=== PATIENT | female | born 1960 | race Hispanic/Latino ===

== ENCOUNTER 2023-06-07 06:05 | Day surgery (SDC) | payer OTHER, SELFPAY ==
[2023-06-07 06:31] VITALS: BMI 30.3
[2023-06-07 06:32] VITALS: BP 146/68; BMI 30.3
[2023-06-07] MEDS: POLYTRIM OPHTHALMIC SOLUTION 1 DROP OPHTH (06:42)
[2023-06-07] MEDS: ALCAINE 0.5% EYE DROPS 1 DROP OPHTH (06:42)
[2023-06-07] MEDS: PRED FORTE 1% EYE DROPS 1 DROP OPHTH (06:42)
[2023-06-07] MEDS: MYDRIACYL 1 DROP OPHTH (06:43)
[2023-06-07] MEDS: NEO-SYNEPHRINE 2.5% OPH SOL. 1 DROP OPHTH (06:43)
[2023-06-07] MEDS: ACUVAIL 1 DROPS OPHTH (06:44)
[2023-06-07] MEDS: CYCLOGYL 1% EYE DROPS 1 DROP OPHTH (06:44)
[2023-06-07] MEDS: NORMOSOL-R 1000 IV (06:45)
[2023-06-07] MEDS: AKTEN OPHTHALMIC GEL 1 ML OPHTH (06:45)
[2023-06-07 06:46] LABS: Glucose - Point of Care 96 mg/dl (70-99)
[2023-06-07 08:00] VITALS: BP 148/65
[2023-06-07 08:15] VITALS: BP 140/67
== END 2023-06-07 08:30 | disposition home or self-care (01) ==
LOC: SDS 06:05
PROVIDERS: ATTENDING PHYSICIAN Ophthalmology
DX: H25.12 Age-related nuclear cataract, left eye (principal)
CPT/HCPCS: 66984; 82962; V2632

== ENCOUNTER 2024-01-23 22:08 | Emergency (ER) | payer OTHER, SELFPAY ==
[2024-01-23 22:10] VITALS: BP 186/97
[2024-01-23 22:36] VITALS: BMI 26.2
--- NOTE | 2024-01-23 22:52 | ED.GENMED ---
History of Present Illness
<SATHYA Parsons - Last Filed: 01/24/24 04:13>
General
Chief Complaint: Fever
Time Seen by Provider: 01/23/24 22:40
History of Present Illness
History of Present Illness:
Pt is a 64 y/o F with phmx of HTN, cardiomyopathy, and cardiac cath ablation in 2022 presents with complaints of cough and fever x1 week. The cough is productive with white sputum and is worsened with exertion. There is associated chest pain, back
pain, SOB, and vomiting. She is unsure of how many episodes of vomit she has had but it is brought on by her cough. has tried Tylenol at 3pm today without relief. The fever is associated with chills and headache. The pt denies sick contacts. Denies
hemoptysis, nausea, food in vomit, abdominal pain, swelling, or extremity pain.
Past History
<SATHYA Parsons - Last Filed: 01/24/24 04:13>
Past History
ED Past Medical History: HTN, Other (Cardiomyopathy) and Other (Cataracts)
ED Past Surgical History: Cardiac (PVC ablation)
Social History
Tobacco: Non-smoker
Alcohol: None
Living: with family
Family History
Family History: Negative Diabetes, Hypertension, Early CAD, Asthma or Cancer
Review of Systems
<SATHYA Parsons - Last Filed: 01/24/24 04:13>
Review of Systems
Allergies reviewed?: Yes
Constitutional: Reports fever and chills
EENT: Reports no symptoms
Respiratory: Reports cough and trouble breathing
Cardiac: Reports chest pain
ABD/GI: Reports vomiting
: Reports no symptoms
Musculoskeletal: Reports back pain
Skin: Reports no symptoms
Neurological: Reports headache
Endocrine: Reports no symptoms
Hematologic/Lymphatic: Reports no symptoms
Psychiatric: Reports no symptoms
Phy Exam
<SATHYA Parsons - Last Filed: 01/24/24 04:13>
General Physical Exam
General Presentation: mild distress
General age: appears stated age
General Skin: warm and dry
General Habitus: normal
General Mental: alert
General Hydration: appears well hydrated
ENT Exam
ENT Exam: EOMI and neck supple
Eye Exam
Eye Exam: PERRL, EOMI, cornea clear and conjunctiva normal
Cardiovascular Exam
Cardiovascular Exam: regular rate/rhythm and normal peripheral pulses
Pulmonary Exam
Pulmonary Exam: chest non tender and decreased breath sounds
Cough: hacking cough and productive cough
Respirations: shallow
Breath Sounds: Crackles: left upper and left lower and Rhonchi: generalized
Gastrointestinal Exam
Gastrointestinal Exam: normal bowel sounds, non tender, soft and non distended
Neurological Exam
Neurological Exam: alert, oriented x3, CN II-XII intact, no motor deficits, normal reflexs, no sensory deficits and speech normal
Musculoskeletal Exam
Musculoskeletal Exam: full ROM, no edema and neuro vasc intact
Skin Exam
Skin Exam: normal color, warm/dry, no rash and no petechia
Psychiatric Exam
Psychiatric Exam: normal mood/affect
Sepsis
<SATHYA Parsons - Last Filed: 01/24/24 04:13>
Sepsis Screening
Sepsis Assessment: Sepsis Ruled Out
Sepsis Screen
Sepsis Screen: Sepsis Ruled Out
Date: 01/24/24
Time: 04:13
Course
<SATHYA Parsons - Last Filed: 01/24/24 04:13>
Orders/Labs/Results
Orders:
Orders
01/23/24 22:15
CR Chest - 2 Views Urgent
Comment:
Reason For Exam: cough, fever, tachypnea
01/23/24 22:55
COVID-19 Antigen Urgent
Source: Nasal Swab
Complete Blood Count/With Diff Urgent
Comprehensive Metabolic Panel Urgent
Influenza A+B Rapid Molecular Urgent
THOMAS Source: Nasal Swab
Specimen Description:
01/23/24 23:15
Ipratropium/Albuterol Sulfate [Duoneb] 3 ml INH R NOW STA
01/23/24 23:17
Acetaminophen [Tylenol] 1,000 mg PO NOW STA
01/23/24 23:25
Electrocardiogram (*1) Urgent
Reason for Study: Chest Pain
EKG- Treatment ONCE
01/23/24 23:29
Lactic Acid Urgent
NT-proBNP Urgent
01/23/24 23:35
Sputum Culture [Respiratory Culture/Gram Stain] Urgent
THOMAS Source: Sputum
Specimen Description:
Date Specimen was Collected: 01/24/24
Time Specimen was Collected: 00:03
01/24/24 00:19
Azithromycin [Zithromax] 500 mg PO NOW STA
CefTRIAXone [Rocephin] 1,000 mg IV NOW STA
01/24/24 00:44
Sterile Water [Sterile Water For Injection] 20 ml .ROUTE .STK-MED
Abnormal Lab Results
01/23/24
22:55
MCV 80.5 L fL
(81.0-99.0)
Absolute Neuts (auto) 7.6 H 10^3/uL
(1.4-6.5)
Absolute Monos (auto) 0.8 H 10^3/uL
(0.1-0.6)
Lymphocytes % 17.4 L %
(20.5-51.1)
BUN 18 H mg/dl
(7-17)
Glucose 109 H mg/dl
(70-99)
AST 38 H U/L
(14-36)
01/23/24 22:55
01/23/24 22:55
Vital Signs
Initial and Last Documented VS:
Initial Vital Signs
Temp Pulse Resp BP Pulse Ox
99.7 F 61 30 186/97 93
01/23/24 22:10 01/23/24 22:10 01/23/24 22:10 01/23/24 22:10 01/23/24 22:10
Last Documented Vital Signs
Temp Pulse Resp BP Pulse Ox
99.2 F 61 28 127/52 92
01/24/24 00:18 01/24/24 01:45 01/24/24 01:45 01/24/24 01:43 01/24/24 01:43
<Carrie Viramontes, DO - Last Filed: 01/24/24 01:13>
Orders/Labs/Results
Orders:
Orders
01/23/24 22:15
CR Chest - 2 Views Urgent
Comment:
Reason For Exam: cough, fever, tachypnea
01/23/24 22:55
COVID-19 Antigen Urgent
Source: Nasal Swab
Complete Blood Count/With Diff Urgent
Comprehensive Metabolic Panel Urgent
Influenza A+B Rapid Molecular Urgent
THOMAS Source: Nasal Swab
Specimen Description:
01/23/24 23:15
Ipratropium/Albuterol Sulfate [Duoneb] 3 ml INH R NOW STA
01/23/24 23:17
Acetaminophen [Tylenol] 1,000 mg PO NOW STA
01/23/24 23:25
Electrocardiogram (*1) Urgent
Reason for Study: Chest Pain
EKG- Treatment ONCE
01/23/24 23:29
Lactic Acid Urgent
NT-proBNP Urgent
01/23/24 23:35
Sputum Culture [Respiratory Culture/Gram Stain] Urgent
THOMAS Source: Sputum
Specimen Description:
Date Specimen was Collected: 01/24/24
Time Specimen was Collected: 00:03
01/24/24 00:19
Azithromycin [Zithromax] 500 mg PO NOW STA
CefTRIAXone [Rocephin] 1,000 mg IV NOW STA
01/24/24 00:44
Sterile Water [Sterile Water For Injection] 20 ml .ROUTE .K-MED
Abnormal Lab Results
01/23/24
22:55
MCV 80.5 L fL
(81.0-99.0)
Absolute Neuts (auto) 7.6 H 10^3/uL
(1.4-6.5)
Absolute Monos (auto) 0.8 H 10^3/uL
(0.1-0.6)
Lymphocytes % 17.4 L %
(20.5-51.1)
BUN 18 H mg/dl
(7-17)
Glucose 109 H mg/dl
(70-99)
AST 38 H U/L
(14-36)
01/23/24 22:55
01/23/24 22:55
Vital Signs
Temp: 101.3 F
Initial and Last Documented VS:
Initial Vital Signs
Temp Pulse Resp BP Pulse Ox
99.7 F 61 30 186/97 93
01/23/24 22:10 01/23/24 22:10 01/23/24 22:10 01/23/24 22:10 01/23/24 22:10
Last Documented Vital Signs
Temp Pulse Resp BP Pulse Ox
99.2 F 61 28 127/52 92
01/24/24 00:18 01/24/24 01:45 01/24/24 01:45 01/24/24 01:43 01/24/24 01:43
<SATHYA Parsons - Last Filed: 01/24/24 04:13>
MDM/Problems Addressed
Differential Diagnosis Includes:
PNA
CHF
<SATHYA Parsons - Last Filed: 01/24/24 04:13>
*Critical Care Note
Total Time (30-74mins, 75-104mins- exclusive of procedures): Not Applicable
<Carrie Viramontes DO - Last Filed: 01/24/24 01:13>
*Radiology
Radiology exam reviewed: preliminary read by ED provider (Chest x-ray shows focal infiltrate posteriorly noted on lateral film which is new compared to previous films. Mild cardiomegaly is stable.)
*Pulse Oximetry
Patient hypoxic: no
*EKG
Interpreted by ED Provider?: Yes
Comparison EKG: changes noted (Heart rate has increased from 33 noted on EKG May 2022 to now 70. Mild T wave inversion lead III and aVF are new compared to previous 2022.)
Rate: normal
Rhythm: sinus
Royal: normal axis
Interval: normal interval
QRS Pattern: normal QRS
Ischemia: non-specific ST changes
*G[employer]uler Interpretation
Rate: normal
Interpretation: normal
Rhythm: sinus
<SATHYA Parsons - Last Filed: 01/24/24 04:13>
Update Note
Update Note:
01/24/24, 0030: Pt reports overall improved symptoms after administration of Acetaminophen and DuoNeb. On exam, there is rales and rhonchi in left greater than right lung tenorio.
ED Attending Note
<SATHYA Parsons - Last Filed: 01/24/24 04:13>
-
Portions of this chart may have been created with voice recognition software.� Occasional wrong word or��sound alike� substitutions may have occurred due to the inherent limitations of voice recognition software.
<Carrie Viramontes DO - Last Filed: 01/24/24 01:13>
ED Attending Note
Patient seen and examined by attending physician: Yes
I performed the substantive portion of visit, reviewed & personally made and approve the management plan that is documented in note by myself or BERT.: Yes
ED Attending Note:
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 She also has history of pneumonia approximately 1 year ago who presents with over 1 week history of URI symptoms with
cough productive of whitish phlegm, generalized aches and chills, subjective fever. Symptoms have worsened throughout the week and she was unable to go to work the past 3 days due to URI symptoms. No known close contacts with similar symptoms. No
recent travel. She does admit to mild dyspnea on exertion, generalized fatigue and marked difficulty sleeping due to cough. She denies sore throat nor nasal congestion, no palpitations, no nausea no vomiting, no diarrhea or constipation. Appetite
has been fair.
Lifelong non-smoker. No history of chronic lung disease.
She has been taking Tylenol as well as ibuprofen for aches with temporary improvement.
Prior records reviewed. PVC ablation May 2022.
Follow-up echocardiogram April 2023 shows normal biventricular size and normal systolic function with EF of 60%, improved from 45% noted on echo October 2021.
GENERAL: 64-year-old woman appears her stated age, awake and alert, mildly ill in appearance with mild resting tachypnea. Able to speak in full sentences. Intermittent brief cough is noted during exam. Oral temperature 101.3 �F.
EYE: anicteric
NECK: Supple, nontender, no meningismus, no significant adenopathy. No JVD.
ENT: posterior pharynx is clear, oral mucosa is moist. TM clear b/l, nares patent.
CARDIAC: Regular rate and rhythm. no murmur.
LUNGS: Mild resting tachypnea with fine rhonchi bilateral bases as well as right anterior chest wall.
ABDOMEN: Soft, nondistended, without focal tenderness. normoactive BS.
NEUROLOGICAL: Alert and oriented x3, no focal neuro deficits.
SKIN: Mildly hot to touch and dry, normal color, skin intact. No rash.
MUSCULOSKELETAL: No C/C/E. peripheral pulses are full and equal b/l. No palpable tenderness.
PSYCH: Normal and appropriate interaction.
Patient presents with 1 week history of URI symptoms, febrile, mildly tachypneic. Concern for pneumonia, pneumonitis, acute influenza, acute COVID URI. Accompanying acute CHF is less likely.
Labs are pending including COVID and influenza testing. Will check lactic acid. Sputum culture. Consider adding BNP.
Chest x-ray concerning for infiltrate noted posteriorly, less likely an element of CHF.
Will give Tylenol for fever.
Will give DuoNeb nebulizer.
Will check EKG.
01/24/2024 0100 AM
Patient resting comfortably, respirations are easy and nonlabored. Tolerating oral fluids.
Fevers dissipating.
Labs are unremarkable with normal white blood cell count, unremarkable chemistries. Normal BNP. COVID and influenza testing are negative.
After nebulizer treatment, cough has markedly diminished and lungs have continued rales left base but otherwise clear to auscultation.
Chest x-ray findings and auscultation consistent with left lower lobe pneumonia.
Will give an IV dose of Rocephin and initiate a course of Zithromax for community-acquired pneumonia.
Overall appears comfortable, pulse ox 94 to 95% on room air.
Will discharge to home with prescription for Zithromax for community-acquired pneumonia. Will add albuterol inhaler for as needed cough.
Recommend she remain home from work until fever free for 24 hours.
Discussed importance of staying well-hydrated on a daily basis and continue to rest.
Prompt follow-up with PCP for recheck.
Return precautions discussed.
Discharge Plan
Departure
Patient Disposition: Home (Routine Discharge)
Date of Disposition: 01/24/24
Time of Disposition: 01:08
Patient with high blood pressure during this ER visit?: No
Condition: Good
Discharge Problem:
Community acquired pneumonia
Instructions: Community-acquired pneumonia in adults, Fever, Adult (DC)
Prescriptions:
New
azithromycin [Zithromax TRI-MARCO A] 500 mg tablet
500 mg PO DAILY 3 Days Qty: 3 0RF
albuterol sulfate 90 mcg/actuation aerosol powdr breath activated
2 inh inhalation Q6H PRN (Reason: shortness of breath or coughing) Qty: 1 0RF
No Action
furosemide 40 mg Tablet
40 mg PO DAILY
potassium chloride 20 mEq Tablet Extended Release
20 meq PO DAILY
dapagliflozin propanediol [Farxiga] 10 mg Tablet
10 mg PO QPM
aspirin 81 mg Capsule
81 mg PO QPM
lisinopril 20 mg Tablet
20 mg PO QPM
Referrals:
Noemi Delgado MD [Family Provider] - Call in 1-3 days for appt
Interventions
Interventions:
*Risk Screen - Suicide Last Done: 01/23/24 22:10
*General Assessment Last Done: 01/23/24 22:10
*Neglect/Abuse Screening Last Done: 01/23/24 22:10
ED- Fall Risk Assessment Last Done: 01/23/24 22:45
*ED COVID-19 Vaccine History Last Done: 01/23/24 22:36
*Nursing Disposition Last Done: 01/24/24 02:30
ED- Neurological Assessment Last Done: 01/23/24 22:45
ED-Skin Assessment Last Done: 01/23/24 22:45
Discharge Date and Time
Discharge Date/Time: 01/24/24 02:30
Print Language: FRENCH
[2024-01-23 22:57] VITALS: BP 155/80
[2024-01-23 23:01] VITALS: BP 161/91
[2024-01-23 23:03] LABS: % Basophils 0.6 % (0-2); % Eosinophils 1.4 % (0-6); % Immature Granulocytes 0.4 % (0-0.5); % Lymphocytes 17.4 % (20.5-51.1); % Monocytes 7.2 % (1.7-9.3); Absolute Basophils 0.1 10^3/uL (0-0.2); Absolute Eosinophils 0.1 10^3/uL (0-0.7); Absolute Lymphocytes 1.8 10^3/uL (1.2-3.4); Absolute Monocytes 0.8 10^3/uL (0.1-0.6); Absolute Neutrophils 7.6 10^3/uL (1.4-6.5); Hematocrit 40.5 % (37.0-47.0); Hemoglobin 13.7 g/dL (12.0-16.0); Mean Corp Hgb Conc. 33.8 g/dL (33.0-37.0); Mean Corpuscular Hgb 27.2 pg (27.0-31.0); Mean Corpuscular Volume 80.5 fL (81.0-99.0); Mean Platelet Volume 9.8 fL (7.4-10.4); Nucleated Red Blood Cells % 0 %; Platelet Count 337 10^3/uL (130-400); Red Blood Cell Count 5.03 10^6/uL (4.20-5.40); Red Cell Dist. Width 13.2 % (11.5-14.5); White Blood Cell Count 10.4 10^3/uL (4.8-10.8)
[2024-01-23 23:21] LABS: COVID-19 Antigen Negative (Negative)
[2024-01-23] MEDS: DUONEB 3 ML INH (23:23)
[2024-01-23] MEDS: TYLENOL 1000 MG PO (23:23)
[2024-01-23 23:30] LABS: ALT (SGPT) 25 U/L (0-35); AST (SGOT) 38 U/L (14-36); Albumin 4.4 g/dl (3.5-5.0); Alkaline Phosphatase 111 U/L (38-126); Blood Urea Nitrogen 18 mg/dl (7-17); Calcium 9.3 mg/dl (8.4-10.2); Carbon Dioxide 27 mmol/L (22-30); Chloride 99 mmol/L (98-107); Estimated Creatinine Clearance 62 ml/min; Glucose 109 mg/dl (70-99); Potassium 4.5 mmol/L (3.5-5.1); Sodium 139 mmol/L (135-145); Total Bilirubin 0.6 mg/dl (0.2-1.3); Total Protein 7.4 g/dl (6.3-8.2); eGFR > 60.00
[2024-01-23 23:49] LABS: Lactic Acid 0.9 mmol/L (0.7-2.0)
[2024-01-23 23:58] LABS: NT-proBNP 219 pg/ml
[2024-01-24] VITALS: BP 152/71
[2024-01-24] MEDS: ZITHROMAX 500 MG PO (00:47)
[2024-01-24] MEDS: ROCEPHIN 1000 MG IV (00:47)
[2024-01-24 01:00] VITALS: BP 132/70
[2024-01-24 01:43] VITALS: BP 127/52
== END 2024-01-24 02:30 | disposition home or self-care (01) ==
LOC: EMR 22:08
PROVIDERS: Emergency Medicine; EMERGENCY PHYSICIAN Emergency Medicine; FAMILY PHYSICIAN Emergency Medicine
DX: J18.9 Pneumonia, unspecified organism (principal); R11.10 Vomiting, unspecified; R51.9 Headache, unspecified; Z11.52 Encounter for screening for COVID-19; I10 Essential (primary) hypertension; I42.9 Cardiomyopathy, unspecified; Z79.82 Long term (current) use of aspirin
CPT/HCPCS: 99284; 96374; 94640; 71046; 80053; 83605; 83880; 85025; 87205; 87502; 87811; 93005

== ENCOUNTER 2024-01-30 13:18 | Emergency (ER) | payer OTHER, SELFPAY ==
[2024-01-30 13:21] VITALS: BP 168/102
[2024-01-30 13:42] VITALS: BMI 27.9
[2024-01-30 13:48] VITALS: BP 144/70
[2024-01-30 14:00] VITALS: BP 142/77
[2024-01-30] MEDS: DECADRON 10 MG IV (14:44)
[2024-01-30] MEDS: DUONEB 3 ML INH (14:44)
[2024-01-30 14:59] LABS: % Basophils 0.9 % (0-2); % Immature Granulocytes 0.9 % (0-0.5); % Lymphocytes 39.5 % (20.5-51.1); % Monocytes 9.1 % (1.7-9.3); % Neutrophils 43.6 % (42.2-75.2); Absolute Basophils 0.1 10^3/uL (0-0.2); Absolute Eosinophils 0.5 10^3/uL (0-0.7); Absolute Immature Granulocytes 0.1 10^3/uL (0-0.05); Absolute Lymphocytes 3.1 10^3/uL (1.2-3.4); Absolute Monocytes 0.7 10^3/uL (0.1-0.6); Absolute Neutrophils 3.4 10^3/uL (1.4-6.5); Hematocrit 41.3 % (37.0-47.0); Hemoglobin 13.9 g/dL (12.0-16.0); Mean Corp Hgb Conc. 33.7 g/dL (33.0-37.0); Mean Corpuscular Hgb 27.3 pg (27.0-31.0); Mean Platelet Volume 9.3 fL (7.4-10.4); Nucleated Red Blood Cells % 0 %; Platelet Count 454 10^3/uL (130-400); Red Cell Dist. Width 13.2 % (11.5-14.5); White Blood Cell Count 7.8 10^3/uL (4.8-10.8)
[2024-01-30 15:00] VITALS: BP 150/79
[2024-01-30 15:07] LABS: ALT (SGPT) 35 U/L (0-35); AST (SGOT) 48 U/L (14-36); Albumin 4.2 g/dl (3.5-5.0); Alkaline Phosphatase 129 U/L (38-126); Blood Urea Nitrogen 25 mg/dl (7-17); Calcium 9.2 mg/dl (8.4-10.2); Carbon Dioxide 26 mmol/L (22-30); Chloride 103 mmol/L (98-107); Estimated Creatinine Clearance 54 ml/min; Glucose 100 mg/dl (70-99); Potassium 4.6 mmol/L (3.5-5.1); Sodium 140 mmol/L (135-145); Total Bilirubin 0.3 mg/dl (0.2-1.3); Total Protein 7.4 g/dl (6.3-8.2); eGFR > 60.00
[2024-01-30 15:08] LABS: Lactic Acid 0.8 mmol/L (0.7-2.0)
[2024-01-30 15:16] LABS: NT-proBNP 81.6 pg/ml
--- NOTE | 2024-01-30 15:57 | ED.GENMED ---
History of Present Illness
General
Chief Complaint: Cold/Flu/URI Symptoms
Source: patient
Exam Limitations: none
Time Seen by Provider: 01/30/24 13:41
Nursing documentation reviewed up to this point in time: agreed with
History of Present Illness
History of Present Illness:
64-year-old female with past medical history of hypertension heart disease, pneumonia. She is presenting with concerns of ongoing cough over the past week after being diagnosed with a community-acquired pneumonia. At that point she had noticed
cough. She was found to have a pneumonia to the left lower lobe and was started on ceftriaxone and Zithromax. She claims that she is taking this as prescribed as an outpatient. Otherwise she was also written for an inhaler as she apparently was
having some wheezing at the time as well. On arrival here patient is noticed ongoing cough denies any specific fevers chest pain nausea vomiting. On arrival blood pressure elevated otherwise vital signs are normal. Heart rate in the 50s.
Past History
Past History
ED Past Medical History: HTN, Other (Cardiomyopathy) and Other (Cataracts)
ED Past Surgical History: Cardiac (PVC ablation)
Social History
Tobacco: Non-smoker
Alcohol: None
Living: with family
Family History
Family History: Negative Diabetes, Hypertension, Early CAD, Asthma or Cancer
Review of Systems
Review of Systems
Allergies reviewed?: Yes
All Other Systems: ROS reviewed and negative except as documented in HPI and ROS
Phy Exam
Physical Exam
Physical Exam:
GENERAL: Alert , in no apparent distress
EYE: pupils equal and reactive
NECK: Supple, no significant adenopathy.
ENT: o/p clr, mmm.
CARDIAC: Regular rate and rhythm .
LUNGS: Diffuse expiratory wheezing. Otherwise good air movement
ABDOMEN: Soft, without focal tenderness, no r/g, no cvat
NEUROLOGICAL: Alert and oriented, no focal neuro deficits
SKIN: Warm and dry, skin intact.
MUSCULOSKELETAL: No edema, well perfused.
PSYCH: Normal and appropriate interaction.
Course
Orders/Labs/Results
Orders:
Orders
01/30/24 14:08
Dexamethasone Sod Phosphate [Decadron] 10 mg IV NOW STA
Ipratropium/Albuterol Sulfate [Duoneb] 3 ml INH R NOW STA
01/30/24 14:09
CR Chest - 2 Views Urgent
Comment:
Reason For Exam: sob cough recent pna
01/30/24 14:21
Complete Blood Count/With Diff Urgent
Comprehensive Metabolic Panel Urgent
Lactic Acid Q4H
Comment: CANCEL 2nd LACTIC ACID IF 1st LACTIC ACID IS LESS THAN 2
NT-proBNP Urgent
01/30/24 16:55
Amoxicillin 875 mg/Clav 125 mg [Augmentin 875 mg/125 mg] 1 tablet PO NOW STA
Abnormal Lab Results
01/30/24
14:21
Plt Count 454 H D 10^3/uL
(130-400)
Abs Immat Gran (auto) 0.1 H 10^3/uL
(0-0.05)
Absolute Monos (auto) 0.7 H 10^3/uL
(0.1-0.6)
Immature Gran % 0.9 H %
(0-0.5)
BUN 25 H mg/dl
(7-17)
Glucose 100 H mg/dl
(70-99)
AST 48 H U/L
(14-36)
Alkaline Phosphatase 129 H U/L
(38-126)
01/30/24 14:21
01/30/24 14:21
Vital Signs
Initial and Last Documented VS:
Initial Vital Signs
Temp Pulse Resp BP Pulse Ox
98.4 F 55 16 168/102 97
01/30/24 13:21 01/30/24 13:21 01/30/24 13:21 01/30/24 13:21 01/30/24 13:21
Last Documented Vital Signs
Temp Pulse Resp BP Pulse Ox
98.4 F 49 15 134/116 95
01/30/24 13:21 01/30/24 14:15 01/30/24 14:15 01/30/24 16:00 01/30/24 16:15
MDM/Problems Addressed
MDM/Problems Addressed:
64-year-old female presenting to the emergency department today with concerns of ongoing cough. She was diagnosed with pneumonia 1 week ago and has taken Zithromax. On arrival here patient was afebrile in no distress but did have expiratory
wheezing diffusely.. She was previously treated with azithromycin was given 1 dose of ceftriaxone. X-ray was repeated here that showed improving pneumonia. Vital signs remained normal throughout ER stay diastolic was elevated at 1 point but
repeated blood pressure was in normal range. Heart rate in the 50s to 60s throughout ER stay normal pulse ox able to ambulate without obvious distress. Wheezing significantly improved after nebulizer treatment and steroid. No significant white
count does not appear to have worsening pneumonia and does not appear to require IV antibiotics and admission at this point. Patient was written for Augmentin considering there is some degree of ongoing consolidation on the chest x-ray and was
previously treated with azithromycin only. Otherwise stable for outpatient management return precautions given.
*Critical Care Note
Total Time (30-74mins, 75-104mins- exclusive of procedures): Not Applicable
ED Attending Note
-
Portions of this chart may have been created with voice recognition software.� Occasional wrong word or��sound alike� substitutions may have occurred due to the inherent limitations of voice recognition software.
Discharge Plan
Departure
Patient Disposition: Home (Routine Discharge)
Date of Disposition: 01/30/24
Time of Disposition: 16:56
Patient with high blood pressure during this ER visit?: No
Condition: Good
Covid-19: Not Applicable
Discharge Problem:
Diffuse wheezing
Instructions: Asthma, Adult ED
Prescriptions:
New
prednisone 20 mg tablet
40 mg PO DAILY 3 Days Qty: 6 0RF
albuterol sulfate 90 mcg/actuation aerosol powdr breath activated
1 inh inhalation Q6H PRN (Reason: shortness of breath or wheezing) Qty: 1 0RF
amoxicillin-pot clavulanate 875-125 mg tablet
1 tab PO BID 7 Days Qty: 14 0RF
No Action
furosemide 40 mg Tablet
40 mg PO DAILY
potassium chloride 20 mEq Tablet Extended Release
20 meq PO DAILY
dapagliflozin propanediol [Farxiga] 10 mg Tablet
10 mg PO QPM
aspirin 81 mg Capsule
81 mg PO QPM
lisinopril 20 mg Tablet
20 mg PO QPM
azithromycin [Zithromax TRI-MARCO A] 500 mg tablet
500 mg PO DAILY 3 Days Qty: 3 0RF
albuterol sulfate 90 mcg/actuation aerosol powdr breath activated
2 inh inhalation Q6H PRN (Reason: shortness of breath or coughing) Qty: 1 0RF
Referrals:
Case Hester DO [Family Provider] -
Activity Restrictions/Additional Instructions:
You came to the emergency department today with concerns of ongoing symptoms after recently being diagnosed with pneumonia. Here your x-ray showed but appear to be improving pneumonia. You did have lung sounds that were consistent with wheezing
and inflammatory reaction. Please take the steroid over the next few days as well as Augmentin to ensure there is no ongoing pneumonia. Return to the emergency department medially for any worsening, new or concerning symptoms. Otherwise please
follow-up closely with your primary care doctor in the next few days for reassessment.
Interventions
Interventions:
*Risk Screen - Suicide Last Done: 01/30/24 13:42
*General Assessment Last Done: 01/30/24 13:42
*Neglect/Abuse Screening Last Done: 01/30/24 13:42
ED- Fall Risk Assessment Last Done: 01/30/24 13:42
*ED COVID-19 Vaccine History Last Done: 01/30/24 13:42
ED- Pulmonary Assessment Last Done: 01/30/24 13:42
Discharge Date and Time
Print Language: CUBAN
[2024-01-30 16:00] VITALS: BP 134/116
[2024-01-30 17:00] VITALS: BP 151/55
[2024-01-30] MEDS: AUGMENTIN 875 MG/125 MG 1 TABLET PO (17:08)
== END 2024-01-30 17:30 | disposition home or self-care (01) ==
LOC: EMR 13:18
PROVIDERS: Physician Assistant; EMERGENCY PHYSICIAN Student in an Organized Health Care Education/Training Program; FAMILY PHYSICIAN Family Medicine
DX: R06.2 Wheezing (principal); R05.9 Cough, unspecified; I11.9 Hypertensive heart disease without heart failure
CPT/HCPCS: 99283; 94640; 96374; 71046; 80053; 83605; 83880; 85025

== ENCOUNTER → 2024-08-11 13:22 | Outpatient (REF) | payer OTHER, SELFPAY ==
[2024-08-11 14:49] LABS: % Basophils 0.7 % (0-2); % Eosinophils 5.1 % (0-6); % Immature Granulocytes 0.5 % (0-0.5); % Lymphocytes 26.2 % (20.5-51.1); % Monocytes 6.1 % (1.7-9.3); % Neutrophils 61.4 % (42.2-75.2); Absolute Basophils 0.1 10^3/uL (0-0.2); Absolute Eosinophils 0.4 10^3/uL (0-0.7); Absolute Lymphocytes 2.2 10^3/uL (1.2-3.4); Absolute Monocytes 0.5 10^3/uL (0.1-0.6); Absolute Neutrophils 5.1 10^3/uL (1.4-6.5); Hemoglobin 14.9 g/dL (12.0-16.0); Mean Corp Hgb Conc. 32.4 g/dL (33.0-37.0); Mean Corpuscular Hgb 27.9 pg (27.0-31.0); Mean Corpuscular Volume 86.1 fL (81.0-99.0); Mean Platelet Volume 10.3 fL (7.4-10.4); Nucleated Red Blood Cells % 0 %; Platelet Count 387 10^3/uL (130-400); Red Blood Cell Count 5.34 10^6/uL (4.20-5.40); Red Cell Dist. Width 13.5 % (11.5-14.5); White Blood Cell Count 8.4 10^3/uL (4.8-10.8)
[2024-08-11 14:55] LABS: Urine Albumin 2+ (Neg - Trace); Urine Bilirubin 1+ (Negative); Urine Character Clear (Clear); Urine Color Yellow; Urine Glucose Negative (Negative); Urine Ketone Negative (Negative); Urine Leukocyte 2+ (Negative); Urine Nitrite Negative (Negative); Urine Occult Blood 3+ (Negative); Urine Specific Gravity 1.025 (<1.030); Urine Urobilinogen 1+ (Neg - 1+)
[2024-08-11 15:10] LABS: Urine Bacteria Moderate (Negative); Urine Calcium Oxalate Crystals Present; Urine Mucus Many
[2024-08-11 15:32] LABS: ALT (SGPT) 21 U/L (0-35); AST (SGOT) 34 U/L (14-36); Albumin 4.7 g/dl (3.5-5.0); Alkaline Phosphatase 126 U/L (38-126); Blood Urea Nitrogen 12 mg/dl (7-17); Calcium 9.7 mg/dl (8.4-10.2); Carbon Dioxide 27 mmol/L (22-30); Chloride 104 mmol/L (98-107); Glucose 93 mg/dl (70-99); HDL Cholesterol 71 mg/dl; LDL Cholesterol, Calculated 124 mg/dl; Potassium 5.4 mmol/L (3.5-5.1); Sodium 143 mmol/L (135-145); Total Bilirubin 0.5 mg/dl (0.2-1.3); Total Cholesterol 240 mg/dl (50-199); Total Protein 7.8 g/dl (6.3-8.2); Triglyceride 226 mg/dl (10-149); Very Low Density Lipoprotein 45 mg/dl (0-30); eGFR 51.18
== END ==
LOC: REG 13:22
PROVIDERS: ATTENDING PHYSICIAN Nurse Practitioner Family
DX: Z12.31 Encounter for screening mammogram for malignant neoplasm of breast (principal); R14.0 Abdominal distension (gaseous); Z13.0 Encounter for screening for diseases of the blood and blood-forming organs and certain disorders involving the immune mechanism; E78.5 Hyperlipidemia, unspecified; Z13.89 Encounter for screening for other disorder
CPT/HCPCS: 36415; 80053; 80061; 81003; 81015; 85025